=== PATIENT | male | born 1990 | race Caucasian/White ===

== ENCOUNTER 2018-02-25 17:13 | Emergency (ER) | payer BC, OTHER ==
[~2018-02-25] VITALS: Ht 185.4 cm; Wt 68.0 kg
[~2018-02-25 17:13] MED LIST: NO HOME MEDS
[2018-02-25 17:38] LABS: BASOPHILS % (AUTO) 1 % (0-10); EOSINOPHILS # (AUTO) 0.2 10^3/uL (0.0-0.3); EOSINOPHILS % (AUTO) 3 % (0-10); HEMATOCRIT 46 % (40-54); HEMOGLOBIN 15.8 G/DL (13.3-17.7); LYMPHOCYTES # (AUTO) 2.3 X 10^3 (1.0-4.0); LYMPHOCYTES % (AUTO) 38 % (12-44); MEAN CORPUSCULAR HEMOGLOBIN 31 PG (25-34); MEAN CORPUSCULAR HGB CONC 35 G/DL (32-36); MEAN CORPUSCULAR VOLUME 89 FL (80-99); MEAN PLATELET VOLUME 9.3 FL (7.4-10.4); MONOCYTES # (AUTO) 0.7 X 10^3 (0.0-1.0); MONOCYTES % (AUTO) 12 % (0-12); NEUTROPHILS # (AUTO) 2.7 X 10^3 (1.8-7.8); NEUTROPHILS % (AUTO) 46 % (42-75); PLATELET COUNT 265 10^3/uL (130-400); RED BLOOD COUNT 5.15 10^6/uL (4.35-5.85); RED CELL DISTRIBUTION WIDTH 13.4 % (10.0-14.5); WHITE BLOOD COUNT 5.9 10^3/uL (4.3-11.0)
[2018-02-25] MEDS ORDERED: ASPIRIN 81 MG CHEW (CHILDREN'S ASA) PO ONE (17:45)
[2018-02-25 17:50] LABS: INR 0.9 (0.8-1.4); PROTHROMBIN TIME PATIENT 12.5 SEC (12.2-14.7)
[2018-02-25 18:01] LABS: ALANINE AMINOTRANSFERASE 17 U/L (0-55); ALBUMIN 4.9 GM/DL (3.2-4.5); ALKALINE PHOSPHATASE 61 U/L (40-136); BUN/CREATININE RATIO 12; CALCIUM 9.5 MG/DL (8.5-10.1); CARBON DIOXIDE 17 MMOL/L (21-32); CHLORIDE 102 MMOL/L (98-107); CREATININE SERUM 1.13 MG/DL (0.60-1.30); GFR ESTIMATED > 60; GLUCOSE 118 MG/DL (70-105); MAGNESIUM 2.4 MG/DL (1.8-2.4); POTASSIUM 3.1 MMOL/L (3.6-5.0); SODIUM 136 MMOL/L (135-145)
--- NOTE | 2018-02-25 18:02 | Diagnostic Imaging Report ---
INDICATION: Chest pain, shaking. FINDINGS: The lungs are clear, although symmetrically hyperexpanded. The heart size is felt to be within normal limits. There is no vascular congestion. No edema, pneumonia, effusion or pneumothorax. IMPRESSION: Clear hyperexpanded lungs. Dictated by: Dictated on workstation # [id number]
[2018-02-25 18:03] LABS: MYOGLOBIN SERUM 102.9 NG/ML (10.0-92.0)
[2018-02-25] MEDS ORDERED: LACTATED RINGERS 1,000 ML IV ONE (18:25)
[2018-02-25 18:27] LABS: BENZODIAZEPINES SCREEN URINE NEGATIVE (NEGATIVE); COCAINE SCREEN URINE NEGATIVE (NEGATIVE)
[2018-02-25 18:28] LABS: AMPHETAMINE SCREEN, URINE NEGATIVE (NEGATIVE); BARBITURATE SCREEN URINE NEGATIVE (NEGATIVE); CANNABINOID SCREEN, URINE NEGATIVE (NEGATIVE); METHADONE STAT NEGATIVE (NEGATIVE); METHAMPHETAMINE SCREEN URINE S NEGATIVE (NEGATIVE); OPIATE SCREEN URINE NEGATIVE (NEGATIVE); OXYCODONE STAT NEGATIVE (NEGATIVE); PROPOXYPHENE STAT NEGATIVE (NEGATIVE); TRICYCLIC ANTIDEPRESSANTS SCRE NEGATIVE (NEGATIVE)
[2018-02-25] MEDS ORDERED: KCL 10 MEQ TAB (MICRO K) PO ONE (18:30)
--- NOTE | 2018-02-25 19:09 | ED Chest Pain ---
General Chief Complaint: Chest Pain Stated Complaint: CHEST PAIN Nursing Triage Note: PT AMB FROM TRIAGE WITH FRIEND HELP. A&OX4. CO CHEST PAIN AND NUMB EXTREMITIES. PT NOTED TO BE HYPERVENTILATING WITH PALE MOIST SKIN, AND WHOLE BODY TREMORS NOTED. PT REPORTS CHEST PAIN BEGAN APPROX 15 PRIOR TO APPRIVAL WHEN HE WAS SITTING IN HIS FRIENDS CAR AND SYMPTOMS BEGAN OUT OF NOWHERE. PT STATES "FELT LIKE SOMETHING WAS SITTING ON MY CHEST." PT REPORTS HE HAS NEVER FELT THIS PAIN BEFORE. DENIES CARDIAC HISTORY. Nursing Sepsis Screen: No Definite Risk Source: patient Exam Limitations: no limitations (ANAM DESHPANDE MD) History of Present Illness Date Seen by Provider: Feb 25, 2018 Time Seen by Provider: 17:20 Initial Comments This 27-year-old young man presents to the emergency room with sudden onset of heavy chest pressure shortly before coming to the emergency room. He was riding in his friend's car at the time of onset. He denies any prior episodes. He also complains of cramping and numbness in the extremities bilaterally. He is tremoring and seems to be extremely anxious and hyperventilating. He denies any drug or alcohol use today. He did drink alcohol heavily last night. He reports drinking alcohol about one night per week. He denies any triggers for anxiety except for the chest pain itself. He has no known heart or lung problems. (ANAM DESHPANDE MD) Allergies and Home Medications Allergies Coded Allergies: No Known Drug Allergies (Unverified , 05/18/10) Home Medications No Active Prescriptions or Reported Meds Patient Home Medication List Home Medication List Reviewed: Yes (ANAM DESHPANDE MD) Review of Systems Review of Systems Constitutional: no symptoms reported EENTM: No Symptoms Reported Respiratory: No Symptoms Reported Cardiovascular: See HPI Gastrointestinal: No Symptoms Reported Genitourinary: No Symptoms Reported Musculoskeletal: see HPI Skin: no symptoms reported Psychiatric/Neurological: See HPI Endocrine: No Symptoms Reported (ANAM DESHPANDE MD) Past Rujsoto-Roaadp-Lssrvv Hx Past Med/Social Hx: Reviewed Nursing Past Med/Soc Hx (ANAM DESHPANDE MD) Patient Social History Alcohol Use: Occasionally Uses Recreational Drug Use: No Type Used: Smokeless Tobacco 2nd Hand Smoke Exposure: No Recent Foreign Travel: No Contact w/Someone Who Travel: No Recent Infectious Disease Expo: No Recent Hopitalizations: Yes (pneumonia when he was a infant) Physical Abuse: No Sexual Abuse: No (ANAM DESHPANDE MD) Seasonal Allergies Seasonal Allergies: No (ANAM DESHPANDE MD) Past Medical History Surgeries: Yes Appendectomy Respiratory: No Cardiac: No Neurological: No Reproductive Disorders: No Gastrointestinal: No Musculoskeletal: No Endocrine: No HEENT: No Cancer: No Psychosocial: No Integumentary: No Blood Disorders: No (ANAM DESHPANDE MD) Family Medical History Reviewed and Corrections made (ANAM DESHPANDE MD) Hypertension 19 FATHER No Pertinent Family Hx (no family history of heart problems or early cardiac ) (ANAM DESHPANDE MD) Physical Exam Vital Signs Vital Signs - First Documented 02/25/18 17:15 Temp 98.2 Pulse 85 Resp 24 B/P (MAP) 136/95 (109) Pulse Ox 96 O2 Delivery Room Air (NADINE BAH APRN) Vital Signs Capillary Refill : Less Than 3 Seconds (ANAM DESHPANDE MD) Height, Weight, BMI Height: 6'1.00" Weight: 150lbs. 3.0oz. 68.087472rt; BMI Method:Stated General Appearance: WD/WN, Moderate Distress HEENT: PERRL/EOMI, Normal ENT Inspection Neck: Normal Inspection Respiratory: Chest Non Tender, Lungs Clear, Normal Breath Sounds, No Accessory Muscle Use, No Respiratory Distress Cardiovascular: Regular Rate, Rhythm, No Edema, No Murmur Gastrointestinal: Normal Bowel Sounds, Non Tender, Soft Extremity: Normal Inspection, No Calf Tenderness, No Pedal Edema Neurologic/Psychiatric: Alert, Oriented x3, No Motor/Sensory Deficits, time motion analyst II- XII Norm as Tested, Other (anxious, tremoring, poor eye contact, all improving with time) Skin: Normal Color, Warm/Dry (ANAM DESHPANDE MD) Progress/Results/Core Measures Results/Orders Lab Results Laboratory Tests Test 02/25/18 17:30 02/25/18 18:06 02/25/18 21:04 Range/Units White Blood Count 5.9 4.3-11.0 10^3/uL Red Blood Count 5.15 4.35-5.85 10^6/uL Hemoglobin 15.8 13.3-17.7 G/DL Hematocrit 46 40-54 % Mean Corpuscular Volume 89 80-99 FL Mean Corpuscular Hemoglobin 31 25-34 PG Mean Corpuscular Hemoglobin Concent 35 32-36 G/DL Red Cell Distribution Width 13.4 10.0-14.5 % Platelet Count 265 130-400 10^3/uL Mean Platelet Volume 9.3 7.4-10.4 FL Neutrophils (%) (Auto) 46 42-75 % Lymphocytes (%) (Auto) 38 12-44 % Monocytes (%) (Auto) 12 0-12 % Eosinophils (%) (Auto) 3 0-10 % Basophils (%) (Auto) 1 0-10 % Neutrophils # (Auto) 2.7 1.8-7.8 X 10^3 Lymphocytes # (Auto) 2.3 1.0-4.0 X 10^3 Monocytes # (Auto) 0.7 0.0-1.0 X 10^3 Eosinophils # (Auto) 0.2 0.0-0.3 10^3/uL Basophils # (Auto) 0.0 0.0-0.1 10^3/uL Prothrombin Time 12.5 12.2-14.7 SEC INR Comment 0.9 0.8-1.4 Activated Partial Thromboplast Time 28 24-35 SEC Sodium Level 136 135-145 MMOL/L Potassium Level 3.1 L 3.6-5.0 MMOL/L Chloride Level 102 98-107 MMOL/L Carbon Dioxide Level 17 L 21-32 MMOL/L Anion Gap 17 H 5-14 MMOL/L Blood Urea Nitrogen 14 7-18 MG/DL Creatinine 1.13 0.60-1.30 MG/DL Estimat Glomerular Filtration Rate > 60 BUN/Creatinine Ratio 12 Glucose Level 118 H 70-105 MG/DL Calcium Level 9.5 8.5-10.1 MG/DL Corrected Calcium 8.5-10.1 MG/DL Magnesium Level 2.4 1.8-2.4 MG/DL Total Bilirubin 1.0 0.1-1.0 MG/DL Aspartate Amino Transf (AST/SGOT) 16 5-34 U/L Alanine Aminotransferase (ALT/SGPT) 17 0-55 U/L Alkaline Phosphatase 61 40-136 U/L Myoglobin 102.9 H 10.0-92.0 NG/ML Troponin I < 0.30 < 0.30 <0.30 NG/ML Total Protein 8.0 6.4-8.2 GM/DL Albumin 4.9 H 3.2-4.5 GM/DL Serum Alcohol < 10 <10 MG/DL Urine Opiates Screen NEGATIVE NEGATIVE Urine Oxycodone Screen NEGATIVE NEGATIVE Urine Methadone Screen NEGATIVE NEGATIVE Urine Propoxyphene Screen NEGATIVE NEGATIVE Urine Barbiturates Screen NEGATIVE NEGATIVE Ur Tricyclic Antidepressants Screen NEGATIVE NEGATIVE Urine Phencyclidine Screen NEGATIVE NEGATIVE Urine Amphetamines Screen NEGATIVE NEGATIVE Urine Methamphetamines Screen NEGATIVE NEGATIVE Urine Benzodiazepines Screen NEGATIVE NEGATIVE Urine Cocaine Screen NEGATIVE NEGATIVE Urine Cannabinoids Screen NEGATIVE NEGATIVE (NADINE BAH APRN) My Orders Orders - NADINE BAH APRN Troponin I (02/25/18 20:54) (NADINE BAH APRN) Medications Given in ED Current Medications Medications Dose Ordered Sig/Josh Route Start Time Stop Time Status Last Admin Dose Admin Aspirin 324 mg ONCE ONCE PO 02/25/18 17:45 02/25/18 17:46 DC 02/25/18 17:54 324 MG Lactated Ringer's 1,000 ml @ 0 mls/hr Q0M ONCE IV 02/25/18 18:25 02/25/18 18:27 DC 02/25/18 18:41 0 MLS/HR Potassium Chloride 20 meq ONCE ONCE PO 02/25/18 18:30 02/25/18 18:31 DC 02/25/18 18:41 20 MEQ (NADINE BAH APRN) Vital Signs/I&O 02/25/18 02/25/18 17:15 17:15 Temp 98.2 Pulse 85 Resp 24 B/P (MAP) 136/95 (109) Pulse Ox 96 O2 Delivery Room Air Room Air (NADINE BAH APRN) Blood Pressure Mean: 109 Progress Progress Note : Time: 19:15 Progress Note Patient was evaluated with chest pain order set. He was felt to have been hyperventilating had a chest. He had no chest pain on arrival. The tremoring and anxiousness improved with time without any treatment. Patient was offered Ativan but declined. He was mildly hypokalemic. A liter of LR was given along with potassium 20 mEq orally. Plan is to perform a 4 hour troponin rule out. Patient is agreeable to the plan. Care was transferred to Nadine Bah. (ANAM DESHPANDE MD) Initial ECG Impression Date: Feb 25, 2018 Initial ECG Impression Time: 17:23 Initial ECG Rate: 88 Initial ECG Rhythm: Normal Sinus Initial ECG Impression: Normal Comment Normal sinus rhythm with no ST elevation or depression. No abnormal intervals or axis deviation. (ANAM DESHPANDE MD) Diagnostic Imaging Diagonstic Imaging: Xray Plain Films/CT/US/NM/MRI: chest Comments Chest x-ray report reviewed. See report below: NAME: WILFREDO ESPINOZA [facility] REC#: [id number] PT STATUS: REG ER : 1990 PHYSICIAN: ANAM DESHPANDE MD ADMIT DATE: 02/25/18/ER Signed Date of Exam: 02/25/18 CHEST 1 VIEW, AP/PA ONLY INDICATION: Chest pain, shaking. FINDINGS: The lungs are clear, although symmetrically hyperexpanded. The heart size is felt to be within normal limits. There is no vascular congestion. No edema, pneumonia, effusion or pneumothorax. IMPRESSION: Clear hyperexpanded lungs. Dictated by: Dictated on workstation # [id number] Dict: 02/25/181746 Trans: 02/25/181807 Interpreted by: EZEKIEL MAYORGA Electronically signed by: EZEKIEL MAYORGA 02/25/181807 (ANAM DESHPANDE MD) Departure Communication (Admissions) 2136-heart rate has been as low as 49, this is sinus rhythm without ectopy. 116/ 73 blood pressure. Repeat troponin is negative. We will discharge to home. (NADINE BAH APRN) Impression Primary Impression: Chest pain Qualified Codes: R07.9 - Chest pain, unspecified Additional Impressions: Hyperventilation Hypokalemia Disposition: 01 HOME, SELF-CARE Condition: Improved Departure-Patient Inst. Decision time for Depature: 21:38 (NADINE BAH APRN) Referrals: NO,LOCAL PHYSICIAN (PCP/Family) Primary Care Physician Patient Instructions: Chest Pain That Is Not Caused by the Heart (DC) Add. Discharge Instructions: Follow-up with a primary care provider as soon as possible. Return to care if symptoms worsen again. Avoid excessive use of alcohol. All discharge instructions reviewed with patient and/or family. Voiced understanding. Scripts No Active Prescriptions or Reported Meds ANAM DESHPANDE MD Feb 25, 2018 19:08 NADINE BAH APRN Feb 25, 2018 21:38
[2018-02-25 21:45] VITALS: BP 116/73
== END 2018-02-25 21:45 | disposition home or self-care (01) ==
LOC: EDUNIT# 17:13 → ER 17:15
DX: R07.89 Other chest pain (principal); R06.4 Hyperventilation; E87.6 Hypokalemia; Z87.01 Personal history of pneumonia (recurrent); Z90.89 Acquired absence of other organs
CPT/HCPCS: 36415; 71045; 80053; 80306; 80320; 83735; 83874; 84484; 85025; 85610; 85730; 93005; 93041

== ENCOUNTER 2020-02-04 10:22 | Emergency (ER) | payer BC ==
[~2020-02-04] VITALS: Ht 182 cm; Wt 77.0 kg
[2020-02-04 10:25] VITALS: BP 149/107
[2020-02-04] MEDS ORDERED: AMOX1TAB11 (10:37)
[2020-02-04] MEDS ORDERED: METH4TAB10 (10:37)
[2020-02-04] MEDS ORDERED: HYDR-3870 PO (10:53)
--- NOTE | 2020-02-04 10:54 | ED EENT ---
History of Present Illness General Chief Complaint: Dental Problems/Pain Stated Complaint: DENTAL PAIN Nursing Triage Note: ARRIVED VIA AMB TO ROOM 02.. COMPLAINS OF RIGHT SIDED DENTAL PAIN X1 WEEK. WENT TO THE URGENT CARE LAST TUESDAY AND THE DENTIST ON TUE. RX OF NAPROXEN,AUGMENTIN, AND MEDROL. STATES IT IS NOT BETTER. Source: patient Exam Limitations: no limitations History of Present Illness Date Seen by Provider: Feb 04, 2020 Time Seen by Provider: 10:51 Initial Comments To ER with reports of right lower dental pain for one week. [facility], prescription for naproxen, Augmentin and Medrol Dosepak for sinusitis as well. No better. Timing/Duration: abrupt Severity: moderate Location: dental Prearrival Treatment: no prearrival treatment Associated Symptoms: denies symptoms (Morning) Allergies and Home Medications Allergies Coded Allergies: No Known Drug Allergies (Unverified , 05/18/10) Patient Home Medication List Home Medication List Reviewed: Yes Review of Systems Review of Systems Constitutional: see HPI Eyes: No Symptoms Reported Ears: No Symptoms Reported Nose: no symptoms reported Mouth: no symptoms reported Throat: no symptoms reported Respiratory: no symptoms reported Cardiovascular: no symptoms reported Musculoskeletal: no symptoms reported Skin: no symptoms reported Neurological: No Symptoms Reported Past Qaxzfrt-Awexyv-Clilpr Hx Patient Social History Alcohol Use: Occasionally Uses Recreational Drug Use: No Smoking Status: Never a Smoker Type Used: Smokeless Tobacco 2nd Hand Smoke Exposure: No Recent Foreign Travel: No Contact w/Someone Who Travel: No Recent Infectious Disease Expo: No Recent Hopitalizations: Yes (pneumonia when he was a infant) Seasonal Allergies Seasonal Allergies: No Past Medical History Surgeries: Yes Appendectomy Respiratory: No Cardiac: No Neurological: No Reproductive Disorders: No Gastrointestinal: No Musculoskeletal: No Endocrine: No HEENT: No Cancer: No Psychosocial: No Integumentary: No Blood Disorders: No Family Medical History Hypertension 19 FATHER No Pertinent Family Hx Physical Exam Vital Signs Vital Signs - First Documented 02/04/20 10:25 Temp 36.4 Pulse 95 Resp 16 B/P (MAP) 149/107 (121) Pulse Ox 98 O2 Delivery Room Air Height, Weight, BMI Height: 6'1.00" Weight: 150lbs. 3.0oz. 68.893059uw; 23.00 BMI Method:Stated General Appearance: WD/WN, no apparent distress Eyes: bilateral eye normal inspection, bilateral eye PERRL, bilateral eye EOMI Ears: bilateral ear auricle normal, bilateral ear canal normal, bilateral ear TM normal Mouth/Throat: other (fractured and carious right lower molar) Neck: non-tender, full range of motion Respiratory: no respiratory distress, no accessory muscle use Neurologic/Psychiatric: alert, normal mood/affect, oriented x 3 Skin: normal color, warm/dry Progress/Results/Core Measures Results/Orders Vital Signs/I&O 02/04/20 10:25 Temp 36.4 Pulse 95 Resp 16 B/P (MAP) 149/107 (121) Pulse Ox 98 O2 Delivery Room Air Blood Pressure Mean: 121 Departure Impression Primary Impression: Dental caries Disposition: HOME, SELF-CARE Condition: Stable Departure-Patient Inst. Decision time for Depature: 10:52 Referrals: NO,LOCAL PHYSICIAN (PCP/Family) Primary Care Physician Patient Instructions: Dental Pain Add. Discharge Instructions: 1. Pain medication as directed 2. Return to ER for any concerns 3. Follow-up with your dentist this week. All discharge instructions reviewed with patient and/or family. Voiced understanding. NADINE FROST [employer]EDGE WORKER Feb 04, 2020 10:54
== END 2020-02-04 11:09 | disposition home or self-care (01) ==
LOC: EDUNIT# 10:22 → ER 10:23
DX: K02.9 Dental caries, unspecified (principal); Z82.49 Family history of ischemic heart disease and other diseases of the circulatory system
CPT/HCPCS: 99281